=== PATIENT | male | born 1955 | race Caucasian/White ===

== ENCOUNTER 2018-02-09 18:38 | Observation (INO) | payer MEDICAID ==
[~2018-02-09] VITALS: Ht 188 cm; Wt 95.0 kg
[2018-02-09 19:06] LABS: BASOPHILS % (AUTO) 1.1 % (0.0-5.0); EOSINOPHILS % (AUTO) 2.3 % (0.0-8.0); HEMATOCRIT 42.4 % (42-54); LYMPHOCYTES % (AUTO) 21.9 % (21.0-51.0); MEAN CORPUSCULAR HEMOGLOBIN 32.1 pg (27.0-33.0); MEAN CORPUSCULAR VOLUME 89.1 fL (79-99); MONOCYTES % (AUTO) 5.9 % (3.0-13.0); NEUTROPHILS % (AUTO) 68.8 % (40.0-77.0); PLATELET COUNT (AUTO) 176 K/uL (130-400); RED BLOOD CELL COUNT(AUTO) 4.76 MIL/uL (4.50-6.20); RED CELL DISTRIBUTION WIDTH 13.8 % (11.0-15.5)
[2018-02-09 19:20] LABS: CREATININE 1.7 mg/dL (0.5-1.5)
[2018-02-09 19:24] LABS: APPEARANCE,URINE Turbid (CLEAR); BILIRUBIN,URINE Negative (NEGATIVE); COLOR,URINE Yellow (YELLOW); GLUCOSE, URINE (UA) >=1000 mg/dL (NEGATIVE); KETONES,URINE Negative (NEGATIVE); LEUKOCYTE ESTERASE ,URINE Large (NEGATIVE); NITRATE,URINE Positive (NEGATIVE); OCCULT BLOOD,URINE Small (NEGATIVE); PH,URINE 6.5 (5.0-8.0); PROTEIN,URINE POS 1+ (NEGATIVE); UROBILINOGEN,URINE 0.2 mg/dL (0.2-1.0)
[2018-02-09 19:25] LABS: ALBUMIN 3.4 g/dL (3.5-5.0); BILIRUBIN,TOTAL 0.2 mg/dL (0.2-1.0); TOTAL PROTEIN, SERUM 7.5 g/dL (6.0-8.3)
[2018-02-09] MEDS ORDERED: ONDANSETRON 4 MG TABLET ONE (19:37)
[2018-02-09] MEDS ORDERED: SODIUM CHLORIDE 0.9% 1000ML 1,000 ML IV ONE ×2 (19:37→22:39)
[2018-02-09] MEDS ORDERED: MORPHINE SULFATE 2 MG/ML 1ML SYG ONE (19:38)
[2018-02-09 19:50] LABS: BACTERIA,URINE Few /HPF (None Seen); RBC,URINE None Seen /HPF (0-1); WBC,URINE >100 /HPF (0-1)
[2018-02-09] MEDS ORDERED: MORPHINE SULFATE 4 MG/1ML SYG ONE (22:23)
[2018-02-09] MEDS ORDERED: LEVOFLOXACIN 500 MG/D5W 100 ML 100 ML ONE (22:39)
[2018-02-10 01:07] VITALS: BP 120/86
[2018-02-10] MEDS ORDERED: ACETAMINOPHEN 325 MG TAB PO PRN (01:45)
[2018-02-10] MEDS ORDERED: ONDANSETRON HCL 4 MG/2 ML VIAL IV PRN (01:45)
[2018-02-10] MEDS ORDERED: SODIUM CHLORIDE 0.9% 1000ML 1,000 ML IV SCH (02:00)
[2018-02-10] MEDS ORDERED: MORPHINE SULFATE 2 MG/ML 1ML SYG IM PRN (02:00)
[2018-02-10] MEDS ORDERED: FENO135C PO (02:50)
[2018-02-10] MEDS ORDERED: FOLI0.8T2 PO (02:50)
[2018-02-10] MEDS ORDERED: LISI-613 PO (02:50)
[2018-02-10] MEDS ORDERED: TERA5CAP4 PO (02:50)
[2018-02-10] MEDS ORDERED: METF10004 PO (02:50)
[2018-02-10] MEDS ORDERED: ASPI-1012 PO (02:50)
[2018-02-10] MEDS ORDERED: ATOR40TA71 PO (02:50)
[2018-02-10] MEDS ORDERED: FLUT1DIS3 IH (02:50)
[2018-02-10] MEDS ORDERED: EMTR1TAB8 PO (02:50)
[2018-02-10] MEDS ORDERED: FOLI1TAB15 PO (02:50)
[2018-02-10] MEDS ORDERED: GLYB5TAB8 PO (02:50)
[2018-02-10 04:00] VITALS: BP 100/62
[2018-02-10 05:21] LABS: HEMATOCRIT 37.9 % (42-54); MEAN CORPUSCULAR HEMOGLOBIN 31.5 pg (27.0-33.0); MEAN CORPUSCULAR HGB CONC 35.2 g/dL (32.0-36.0); MEAN CORPUSCULAR VOLUME 89.6 fL (79-99); PLATELET COUNT (AUTO) 146 K/uL (130-400); RED BLOOD CELL COUNT(AUTO) 4.23 MIL/uL (4.50-6.20); RED CELL DISTRIBUTION WIDTH 13.8 % (11.0-15.5); WHITE BLOOD COUNT (AUTO) 9.2 K/uL (4.8-10.8)
[2018-02-10 05:24] LABS: CREATININE 1.4 mg/dL (0.5-1.5); POTASSIUM 4.6 mmol/L (3.5-5.1)
[2018-02-10] MEDS ORDERED: MORPHINE SULFATE 2 MG/ML 1ML SYG IV PRN (05:30)
[2018-02-10 08:00] VITALS: BP 102/61
[2018-02-10] MEDS ORDERED: SULFAMETHOX-TMP DS 800/160 TAB PO SCH (09:00)
[2018-02-10] MEDS ORDERED: TRILIPIX PO SCH (09:00)
[2018-02-10] MEDS ORDERED: ATORVASTATIN CALCIUM 40 MG TABLET PO SCH (09:00)
[2018-02-10] MEDS ORDERED: METFORMIN HCL 500 MG TABLET PO SCH (09:00)
[2018-02-10] MEDS ORDERED: GLYBURIDE 5 MG TABLET PO SCH (09:00)
[2018-02-10] MEDS ORDERED: TERAZOSIN HCL 5 MG CAPSULE PO SCH (09:00)
[2018-02-10] MEDS ORDERED: HEPARIN SODIUM 5000UNIT/ML 1ML VIAL SQ SCH (09:00)
[2018-02-10] MEDS ORDERED: FOLIC ACID/VITAMIN B COMP W-C 1 MG CAPSULE PO SCH (09:00)
[2018-02-10] MEDS ORDERED: COMPLERA PO SCH (09:00)
[2018-02-10] MEDS ORDERED: LISINOPRIL 20 MG TABLET PO SCH (09:00)
[2018-02-10] MEDS ORDERED: FAMOTIDINE 20MG TAB 20 MG TAB PO SCH (09:00)
[2018-02-10] MEDS ORDERED: FOLIC ACID 1 MG TABLET PO SCH (09:00)
[2018-02-10] MEDS ORDERED: ASPIRIN 325 MG TABLET PO SCH (09:00)
[2018-02-10] MEDS ORDERED: ALBUTEROL SULFATE 0.083% 2.5 MG/3 ML INH IH SCH (12:00)
[2018-02-10] MEDS ORDERED: BUDESONIDE 0.5 MG/2 ML INH IH SCH (18:00)
== END 2018-02-10 08:55 | disposition left against medical advice (07) ==
LOC: EDH 18:38 → EDHIP 18:39 → 3DH 02-10 01:10
PROVIDERS: ADMIT Family Medicine; ATTEND Family Medicine
DX: N12 Tubulo-interstitial nephritis, not specified as acute or chronic (principal); D72.829 Elevated white blood cell count, unspecified; E86.0 Dehydration; N28.9 Disorder of kidney and ureter, unspecified; B20 Human immunodeficiency virus [HIV] disease; G89.29 Other chronic pain; M54.9 Dorsalgia, unspecified; I10 Essential (primary) hypertension; K76.0 Fatty (change of) liver, not elsewhere classified; J44.9 Chronic obstructive pulmonary disease, unspecified; E11.9 Type 2 diabetes mellitus without complications; E78.5 Hyperlipidemia, unspecified; I25.10 Atherosclerotic heart disease of native coronary artery without angina pectoris; N40.0 Benign prostatic hyperplasia without lower urinary tract symptoms; F17.210 Nicotine dependence, cigarettes, uncomplicated; Z83.3 Family history of diabetes mellitus; Z79.899 Other long term (current) drug therapy
CPT/HCPCS: 36415 ×2; 71046; 74176; 76705; 80048; 80053; 81001; 82150; 82948; 83605; 83690 ×2; 85025; 85027; 87040; 87077; 87088; 87186 ×2; 94664; 99285; G0378 ×14; J1956; J2270; J7030 ×2; Q0162

== ENCOUNTER → 2022-02-12 | Emergency (ER) | payer MEDICAID ==
[~2022-02-12] VITALS: Ht 188 cm; Wt 89.4 kg
[~2022-02-12] MED LIST: ASPI-1012 PO; ATOR40TA71 PO; EMTR1TAB8 PO; FENO135C PO; FLUT1DIS3 IH; FOLI0.8T2 PO; FOLI1TAB15 PO; GLYB5TAB8 PO; LISI20TA24 PO; LORAZEPAM 2 MG/ML 1 ML VIAL IM ONE; LORAZEPAM 2 MG/ML 1 ML VIAL ONE; METF-446 PO; TERA5CAP4 PO
[2022-02-12 17:10] VITALS: BP 140/91
== END ==
LOC: EDH 17:09
DX: F41.9 Anxiety disorder, unspecified (principal); E11.9 Type 2 diabetes mellitus without complications; E78.00 Pure hypercholesterolemia, unspecified; I10 Essential (primary) hypertension; Z88.0 Allergy status to penicillin; Z79.51 Long term (current) use of inhaled steroids; Z79.82 Long term (current) use of aspirin; Z79.84 Long term (current) use of oral hypoglycemic drugs; Z79.899 Other long term (current) drug therapy
CPT/HCPCS: 96372; 99283; J2060

== ENCOUNTER 2022-06-19 21:30 | Emergency (ER) | payer MEDICAID ==
[~2022-06-19] VITALS: Ht 180.3 cm; Wt 77.6 kg
[~2022-06-19 21:30] MED LIST changes: -LORAZEPAM 2 MG/ML 1 ML VIAL IM ONE; -LORAZEPAM 2 MG/ML 1 ML VIAL ONE
[2022-06-19 22:28] LABS: BASOPHILS % (AUTO) 0.6 % (0.0-5.0); EOSINOPHILS % (AUTO) 0.1 % (0.0-8.0); HEMATOCRIT 47.9 % (42-54); LYMPHOCYTES % (AUTO) 18.8 % (21.0-51.0); MEAN CORPUSCULAR HEMOGLOBIN 31.7 pg (27.0-33.0); MEAN CORPUSCULAR HGB CONC 34.4 g/dL (32.0-36.0); MEAN CORPUSCULAR VOLUME 91.9 fL (79-99); MONOCYTES % (AUTO) 6.8 % (3.0-13.0); NEUTROPHILS % (AUTO) 73.2 % (40.0-77.0); PLATELET COUNT (AUTO) 155 K/uL (130-400); RED BLOOD CELL COUNT(AUTO) 5.21 MIL/uL (4.50-6.20); RED CELL DISTRIBUTION WIDTH 14.2 % (11.0-15.5); WHITE BLOOD COUNT (AUTO) 13.9 K/uL (4.8-10.8)
[2022-06-19 22:35] LABS: APPEARANCE,URINE CLEAR (CLEAR); BILIRUBIN,URINE NEGATIVE (NEGATIVE); COLOR,URINE YELLOW (YELLOW); CREATININE 1.5 mg/dL (0.5-1.5); GLUCOSE, URINE (UA) >=1000 mg/dL (NEGATIVE); KETONES,URINE NEGATIVE (NEGATIVE); LEUKOCYTE ESTERASE ,URINE NEGATIVE (NEGATIVE); NITRATE,URINE NEGATIVE (NEGATIVE); OCCULT BLOOD,URINE SMALL (NEGATIVE); PH,URINE 6.5 (5.0-8.0); POTASSIUM 3.6 mmol/L (3.5-5.1); PROTEIN,URINE 30 mg/dL (NEGATIVE); UROBILINOGEN,URINE 0.2 mg/dL (0.2-1.0)
[2022-06-19 22:40] LABS: ALBUMIN 3.5 g/dL (3.5-5.0)
[2022-06-19 22:50] LABS: BACTERIA,URINE None Seen /HPF (None Seen); MUCUS,URINE Rare LPF (None Seen); RBC,URINE 0-1 /HPF (0-1); SQUAMOUS EPITHELIAL CELL,UR Rare /HPF (0-2); WBC,URINE None Seen /HPF (0-1); YEAST,URINE BUDDING None Seen /HPF (None Seen)
[2022-06-19 23:00] VITALS: BP 130/72
[2022-06-19] MEDS ORDERED: CEPH500B PO (23:08)
[2022-06-19] MEDS ORDERED: TAMS-1 PO (23:08)
[2022-06-19] MEDS ORDERED: HYDROCODONE/ACETAMINOPHEN 10/325 MG TAB ONE (23:13)
[2022-06-19] MEDS ORDERED: HYDROCODONE/ACETAMINOPHEN 10/325 MG TAB PO ONE (23:30)
== END 2022-06-19 23:33 | disposition home or self-care (01) ==
LOC: EDH 21:30
DX: N40.1 Benign prostatic hyperplasia with lower urinary tract symptoms (principal); R33.8 Other retention of urine; N39.0 Urinary tract infection, site not specified; E11.22 Type 2 diabetes mellitus with diabetic chronic kidney disease; E78.00 Pure hypercholesterolemia, unspecified; I48.91 Unspecified atrial fibrillation; Z88.0 Allergy status to penicillin; Z79.51 Long term (current) use of inhaled steroids; Z79.82 Long term (current) use of aspirin; Z87.440 Personal history of urinary (tract) infections; Z90.79 Acquired absence of other genital organ(s); Z21 Asymptomatic human immunodeficiency virus [HIV] infection status
CPT/HCPCS: 36415; 51702; 71045; 76775; 80053; 81001; 84484; 85025

== ENCOUNTER 2022-07-18 16:25 | Emergency (ER) | payer MEDICAID ==
[~2022-07-18] VITALS: Ht 177.8 cm; Wt 78.9 kg
[~2022-07-18 16:25] MED LIST changes: +CEPH500B PO; +TAMS-1 PO
[2022-07-18 16:43] LABS: BASOPHILS % (AUTO) 0.4 % (0.0-5.0); HEMATOCRIT 43.6 % (42-54); LYMPHOCYTES % (AUTO) 15.1 % (21.0-51.0); MEAN CORPUSCULAR HEMOGLOBIN 31.3 pg (27.0-33.0); MEAN CORPUSCULAR HGB CONC 34.4 g/dL (32.0-36.0); MEAN CORPUSCULAR VOLUME 90.8 fL (79-99); MONOCYTES % (AUTO) 6.1 % (3.0-13.0); PLATELET COUNT (AUTO) 135 K/uL (130-400); RED CELL DISTRIBUTION WIDTH 13.5 % (11.0-15.5); WHITE BLOOD COUNT (AUTO) 11.6 K/uL (4.8-10.8)
[2022-07-18 17:00] LABS: APPEARANCE,URINE CLEAR (CLEAR); BILIRUBIN,URINE NEGATIVE (NEGATIVE); COLOR,URINE YELLOW (YELLOW); GLUCOSE, URINE (UA) >=1000 mg/dL (NEGATIVE); KETONES,URINE NEGATIVE (NEGATIVE); LEUKOCYTE ESTERASE ,URINE SMALL (NEGATIVE); NITRATE,URINE POSITIVE (NEGATIVE); OCCULT BLOOD,URINE SMALL (NEGATIVE); PROTEIN,URINE 30 mg/dL (NEGATIVE); UROBILINOGEN,URINE 0.2 mg/dL (0.2-1.0)
[2022-07-18] MEDS ORDERED: 0.9% NACL 500ML IV.SOLN 500 ML IV ONE (17:00)
[2022-07-18] MEDS ORDERED: KETOROLAC 30MG VIAL (30MG/ML) IVP ONE (17:00)
[2022-07-18] MEDS ORDERED: PROCHLORPERAZINE 10MG/2ML INJ IV ONE (17:00)
[2022-07-18] MEDS ORDERED: CYCLOBENZAPRINE HCL 10 MG TABLET PO ONE (17:00)
[2022-07-18 17:03] LABS: AMPHET/METH SCREEN,URINE NEGATIVE (NEGATIVE); BARBITURATE SCREEN, URINE NEGATIVE (NEGATIVE); BENZODIAZEPINES SCREEN,URINE POSITIVE (NEGATIVE); CANNABINOID SCREEN,URINE NEGATIVE (NEGATIVE); COCAINE SCREEN,URINE NEGATIVE (NEGATIVE); PHENCYCLIDINE SCREEN,URINE NEGATIVE (NEGATIVE)
[2022-07-18 17:04] LABS: ALANINE AMINOTRANSFERASE 22 U/L (12-78); ALBUMIN 3.1 g/dL (3.5-5.0); ASPARTATE AMINOTRANSFERASE 17 U/L (10-37); CARBON DIOXIDE 25 mmol/L (21-32); CHLORIDE 102 mmol/L (101-111); CREATININE 1.5 mg/dL (0.5-1.5); GLOMERULAR FILTR. RATE CALC 50 mL/min (>60); GLUCOSE,RANDOM 161 mg/dL (70-105); POTASSIUM 4.5 mmol/L (3.5-5.1); SODIUM SERUM 134 mmol/L (136-145); TOTAL PROTEIN, SERUM 6.9 g/dL (6.0-8.3); UREA NITROGEN, BLOOD 24 mg/dL (7-18)
[2022-07-18 17:05] LABS: ALCOHOL, BLOOD < 3 mg/dL (0-10)
[2022-07-18 17:21] LABS: BACTERIA,URINE Few /HPF (None Seen)
[2022-07-18 17:24] LABS: MUCUS,URINE Rare LPF (None Seen); SQUAMOUS EPITHELIAL CELL,UR Rare /HPF (0-2)
[2022-07-18 17:27] LABS: CREATINE KINASE, TOTAL 80 U/L (21-232); SALICYLATE 3.7 mg/dL (2.8-20.0)
[2022-07-18] MEDS ORDERED: CEFTRIAXONE 1G VIAL IVP ONE (17:30)
[2022-07-18 17:31] LABS: ACETAMINOPHEN < 1 mcg/mL (10-29)
[2022-07-18 17:47] VITALS: BP 134/75
[2022-07-18] MEDS ORDERED: CEPH500B PO (18:15)
== END 2022-07-18 18:55 | disposition home or self-care (01) ==
LOC: EDH 16:25
DX: N39.0 Urinary tract infection, site not specified (principal); F13.10 Sedative, hypnotic or anxiolytic abuse, uncomplicated; E86.0 Dehydration; R51.9 Headache, unspecified; Z20.822 Contact with and (suspected) exposure to COVID-19; E11.9 Type 2 diabetes mellitus without complications; E78.00 Pure hypercholesterolemia, unspecified; F32.A Depression, unspecified; F41.9 Anxiety disorder, unspecified; I10 Essential (primary) hypertension; I48.91 Unspecified atrial fibrillation; J44.9 Chronic obstructive pulmonary disease, unspecified; Z88.2 Allergy status to sulfonamides; Z88.0 Allergy status to penicillin; Z88.1 Allergy status to other antibiotic agents; Z90.79 Acquired absence of other genital organ(s); Z79.82 Long term (current) use of aspirin; Z79.51 Long term (current) use of inhaled steroids
CPT/HCPCS: 99285; 96374; 71045; 96375; 87635; 96361; 82550; 84484; 80053; 80305; 85025; 87077; 87088; 87186; 36415; 93005; 81001; G0481; C9803; J7040; J0780; J0696; J1885